=== PATIENT | female | born 1975 | race Caucasian/White ===

== ENCOUNTER 2019-09-20 06:19 | Day surgery (SDC) | payer OTHER ==
[~2019-09-20] VITALS: Ht 154.9 cm; Wt 96.6 kg
[~2019-09-20 06:19] MED LIST: ALL10TAB29 PO; EFFE150C2 PO; HYDR12CA PO; IUD; LIDOCAINE 1% MDV 20ML VIAL SQ PRN; LISI-538 PO; LISI10TA4 PO; MONT10TA4 PO
[2019-09-20] MEDS ORDERED: MIDAZOLAM INJ 2 MG/2 ML VIAL (J2250) As Ordered ONE (06:48)
[2019-09-20 06:49] LABS: HEMATOCRIT 40.7 % (36.0-47.0); HEMOGLOBIN 13.6 g/dl (12.0-15.5); MEAN CORPUSCULAR HEMOGLOBIN 29.6 pg (27.0-33.0); MEAN CORPUSCULAR HGB CONC 33.4 g/dl (32.0-36.5); MEAN CORPUSCULAR VOLUME 88.7 fl (80.0-96.0); PLATELET COUNT, AUTOMATED 193 10^3/uL (150-450); RED BLOOD COUNT 4.59 10^6/uL (4.00-5.40); WHITE BLOOD COUNT 3.8 10^3/uL (4.0-10.0)
[2019-09-20] MEDS ORDERED: ONDANSETRON 4MG/2ML VIAL (J2405) As Ordered ONE (06:49)
[2019-09-20] MEDS ORDERED: fentaNYL 100 MCG/2 ML INJECTION (J3010) As Ordered ONE (06:49)
[2019-09-20] MEDS ORDERED: ACETAMINOPHEN 1000MG 100ML IV BTL (OFIRMEV) (J0131 PER 10MG) As Ordered ONE (06:49)
[2019-09-20] MEDS ORDERED: propofoL 200 MG/20 ML VIAL As Ordered ONE (06:49)
[2019-09-20] MEDS ORDERED: dexameTHASONE 4 MG/ML 1ML VIAL (J1100) As Ordered ONE (06:49)
[2019-09-20] MEDS ORDERED: LIDOCAINE 2% INJ 100 MG/5 ML SDV (FOR ANES.) As Ordered ONE (06:50)
[2019-09-20] MEDS ORDERED: SUGAMMADEX SODIUM 500 MG/5 ML VIAL (BRIDION) As Ordered ONE (06:50)
[2019-09-20] MEDS ORDERED: ROCURONIUM BROMIDE 50 MG/5 ML VIAL As Ordered ONE (06:50)
[2019-09-20] MEDS ORDERED: SODIUM CHLORIDE 0.9% 1000ML IV ONE (07:00)
[2019-09-20] MEDS ORDERED: LR 1,000 ML IV ONE (07:00)
[2019-09-20] MEDS ORDERED: ACETAMINOPHEN 650 MG SUPP PR ONE (07:00)
[2019-09-20 07:12] LABS: BLOOD UREA NITROGEN 15 MG/DL (7-18); CARBON DIOXIDE LEVEL 26 MEQ/L (21-32); CHLORIDE LEVEL 111 MEQ/L (98-107); CREATININE FOR GFR 0.71 MG/DL (0.55-1.30); GLOMERULAR FILTRATION RATE > 60.0 (>58); GLUCOSE, FASTING 105 MG/DL (70-100); HCG, SERUM QUANTITATIVE < 1.0 MIU/ML; SODIUM LEVEL 139 MEQ/L (136-145)
[2019-09-20] MEDS ORDERED: ACETAMINOPHEN 650 MG SUPP As Ordered ONE (08:34)
[2019-09-20] MEDS ORDERED: BUPIVACAINE HCL 0.5% 30 ML VIAL As Ordered ONE (09:33)
[2019-09-20] MEDS ORDERED: LR 1,000 ML IV SCH (11:00)
[2019-09-20] MEDS ORDERED: ONDANSETRON 4MG/2ML VIAL (J2405) IV PRN (11:00)
[2019-09-20] MEDS ORDERED: fentaNYL 100 MCG/2 ML INJECTION (J3010) IV PRN (11:00)
[2019-09-20 12:04] VITALS: BP 126/66
== END 2019-09-20 12:05 | disposition home or self-care (01) ==
LOC: M SDC 06:19
PROVIDERS: ATTEND Obstetrics & Gynecology
DX: Z30.2 Encounter for sterilization (principal); Z88.0 Allergy status to penicillin
CPT/HCPCS: 36415; 58301; 58563; 58661; 80048; 84702; 85027; 88300; 88302; 88305; J0131; J1100; J2250; J2405; J3010

== ENCOUNTER 2023-01-16 11:22 | Emergency (ER) | payer OTHER ==
[~2023-01-16] VITALS: Ht 152.4 cm; Wt 97.7 kg
[~2023-01-16 11:22] MED LIST changes: -ALL10TAB29 PO; +CETI-24 PO; -LIDOCAINE 1% MDV 20ML VIAL SQ PRN; -LISI-538 PO; +LISI10TA22 PO; -LISI10TA4 PO; +LISI20TA33 PO; -MONT10TA4 PO; +MONT10TA97 PO
[2023-01-16 12:31] LABS: BASO % 0.2 % (0.0-1.0); HEMATOCRIT 38.8 % (36.0-47.0); HEMOGLOBIN 12.9 g/dl (12.0-15.5); LYMPH # 1.9 10^3/uL (1.5-5.0); LYMPH % 33.6 % (24.0-44.0); MEAN CORPUSCULAR HEMOGLOBIN 28.9 pg (27.0-33.0); MEAN CORPUSCULAR HGB CONC 33.2 g/dl (32.0-36.5); MONO # 0.5 10^3/uL (0.0-0.8); MONO % 8.7 % (2.0-8.0); NEUTROPHILS # 3.3 10^3/uL (1.5-8.5); PLATELET COUNT, AUTOMATED 222 10^3/uL (150-450); RED BLOOD COUNT 4.46 10^6/uL (4.00-5.40); WHITE BLOOD COUNT 5.8 10^3/uL (4.0-10.0)
[2023-01-16] MEDS ORDERED: PANTOPRAZOLE 40MG VIAL IV ONE (12:40)
[2023-01-16] MEDS ORDERED: MAALOX 30 ML SUSP *UDC PO ONE (12:40)
[2023-01-16] MEDS ORDERED: SUCRALFATE 1 GM TAB PO ONE (12:40)
[2023-01-16] MEDS ORDERED: ISOVUE-370 76% 100ML VIAL As Ordered ONE (12:47)
[2023-01-16 12:48] LABS: INR 1.02; PROTHROMBIN TIME 13.6 SECONDS (12.5-14.5)
[2023-01-16 12:49] LABS: PARTIAL THROMBOPLASTIN TIME 30.3 SECONDS (24.8-34.2)
[2023-01-16 12:56] LABS: LIPASE 43 U/L (12-53)
[2023-01-16] MEDS ORDERED: diphenhydrAMINE 50MG/ML VIAL IV STA (12:57)
[2023-01-16 12:59] LABS: ALBUMIN 3.9 G/DL (3.2-5.2); ALKALINE PHOSPHATASE 64 U/L (46-116); ALT/SGPT 59 U/L (7.0-40); AST/SGOT 23 U/L (<34); BILIRUBIN,DIRECT 0.1 MG/DL (<0.4); BILIRUBIN,TOTAL 0.3 MG/DL (0.3-1.2); BLOOD UREA NITROGEN 10 MG/DL (9-23); CALCIUM LEVEL 9.2 MG/DL (8.5-10.1); CARBON DIOXIDE LEVEL 26 MMOL/L (20-31); CHLORIDE LEVEL 105 MMOL/L (98-107); CK-MB VALUE MASS < 1.0 NG/ML (<3.6); CPK CREATINE PHOSPHOKINASE 94 U/L (34-145); CREATININE FOR GFR 0.57 MG/DL (0.55-1.30); GLOMERULAR FILTRATION RATE > 60.0 (>58); GLUCOSE, FASTING 73 MG/DL (60-100); MB/CK RELATIVE INDEX 1.06 (< OR =4); POTASSIUM SERUM 3.3 MMOL/L (3.5-5.1); SODIUM LEVEL 142 MMOL/L (136-145); TOTAL PROTEIN 6.8 G/DL (5.7-8.2)
[2023-01-16 13:00] LABS: THYROID STIMULATING HORMONE 1.765 uIU/ML (0.55-4.78)
[2023-01-16 13:08] LABS: RSV AMPLIFICATION NEGATIVE (NEGATIVE)
[2023-01-16 13:48] LABS: CK-MB VALUE MASS < 1.0 NG/ML (<3.6); CPK CREATINE PHOSPHOKINASE 84 U/L (34-145); MB/CK RELATIVE INDEX 1.19 (< OR =4)
[2023-01-16] MEDS ORDERED: POTASSIUM CHLORIDE 10MEQ SR TABLET PO ONE (14:45)
[2023-01-16 16:00] VITALS: BP 123/65; TEMP 97.8; O2SAT 99
== END 2023-01-16 16:18 | disposition home or self-care (01) ==
LOC: M ED 11:22
DX: K21.9 Gastro-esophageal reflux disease without esophagitis (principal); M54.12 Radiculopathy, cervical region; I10 Essential (primary) hypertension; M06.9 Rheumatoid arthritis, unspecified; Z91.041 Radiographic dye allergy status; Z88.0 Allergy status to penicillin; Z79.899 Other long term (current) drug therapy
CPT/HCPCS: 70450; 71045; 71275; 72125; 80047; 80048; 80076; 82550; 82553; 83690; 84439; 84443; 84484; 85025; 85610; 85730; 87631; 93005; 93041; 94760; 96374; 96375; 99285; C9113; J1200; Q9967

== ENCOUNTER → 2024-02-27 | Outpatient (CLI) | payer OTHER ==
[~2024-02-27] MED LIST changes: -EFFE150C2 PO; +EFFE150C3 PO
[2024-02-27 09:29] LABS: HEMATOCRIT 39.2 % (36.0-47.0); LYMPH # 1.6 10^3/uL (1.5-5.0); LYMPH % 35.2 % (24.0-44.0); MEAN CORPUSCULAR HEMOGLOBIN 29.1 pg (27.0-33.0); MEAN CORPUSCULAR HGB CONC 33.2 g/dl (32.0-36.5); MEAN CORPUSCULAR VOLUME 87.7 fl (80.0-96.0); MONO # 0.4 10^3/uL (0.0-0.8); MONO % 7.9 % (2.0-8.0); NEUTROPHILS # 2.6 10^3/uL (1.5-8.5); NEUTROPHILS % 56.2 % (36.0-66.0); PLATELET COUNT, AUTOMATED 206 10^3/uL (150-450); RED BLOOD COUNT 4.47 10^6/uL (4.00-5.40); WHITE BLOOD COUNT 4.5 10^3/uL (4.0-10.0)
[2024-02-27 09:35] LABS: ERYTHROCYTE SEDIMENTATION RATE 15 mm/hr (0-20)
[2024-02-27 10:01] LABS: ALBUMIN 3.9 G/DL (3.2-5.2); ALKALINE PHOSPHATASE 68 U/L (46-116); ALT/SGPT 40 U/L (7.0-40); AST/SGOT 15 U/L (<34); BILIRUBIN,TOTAL 0.4 MG/DL (0.3-1.2); BLOOD UREA NITROGEN 13 MG/DL (9-23); CALCIUM LEVEL 9.2 MG/DL (8.5-10.1); CARBON DIOXIDE LEVEL 22 MMOL/L (20-31); CHLORIDE LEVEL 107 MMOL/L (98-107); GLOMERULAR FILTRATION RATE > 60.0 (>58); GLUCOSE, FASTING 90 MG/DL (60-100); IMMUNOGLOBULIN A 133.6 MG/DL (40-350); IMMUNOGLOBULIN G 1048 MG/DL (650-1600); POTASSIUM SERUM 3.9 MMOL/L (3.5-5.1); SODIUM LEVEL 138 MMOL/L (136-145); TOTAL PROTEIN 6.9 G/DL (5.7-8.2)
[2024-02-27 10:02] LABS: THYROID PEROXIDASE ANTIBODY < 28.0 U/ML (<60.0)
[2024-02-27 10:03] LABS: THYROID STIMULATING HORMONE 1.161 uIU/ML (0.55-4.78)
[2024-03-01 14:57] LABS: ANA SCREEN, IFA POSITIVE (NEGATIVE)
[2024-03-01 15:02] LABS: ANA PATTERN Nuclear, Homogeneous (NEGATIVE); ANA PATTERN 2 Nuclear, Speckled
[2024-03-02 10:02] LABS: ALBUMIN SPEP 4.3 g/dL (3.8-4.8); ALPHA-1-GLOBULINS SO 0.3 g/dL (0.2-0.3); ALPHA-2-GLOBULINS SO 0.6 g/dL (0.5-0.9); BETA 2 GLOBULIN 0.4 g/dL (0.2-0.5); BETA-GLOBULIN SO 0.4 g/dL (0.4-0.6); GAMMA GLOBULINS SO 0.9 g/dL (0.8-1.7)
[2024-03-03 03:36] LABS: TRYPTASE 5.4 mcg/L (<11.0)
== END ==
LOC: M LAB 08:16 → M PLALAB 08:16
PROVIDERS: ATTEND Allergy & Immunology
DX: R53.81 Other malaise (principal); L50.9 Urticaria, unspecified

== ENCOUNTER → 2024-04-26 | Outpatient (CLI) | payer OTHER | LOC: M PLALAB 12:16 | PROVIDERS: ATTEND Allergy & Immunology | DX: R79.9 Abnormal finding of blood chemistry, unspecified (principal) ==

== ENCOUNTER → 2024-05-04 | Outpatient (CLI) | payer OTHER | LOC: M PLAIMG 11:25 | PROVIDERS: ATTEND Student in an Organized Health Care Education/Training Program | DX: R09.81 Nasal congestion (principal); J30.9 Allergic rhinitis, unspecified; J01.00 Acute maxillary sinusitis, unspecified ==

== ENCOUNTER 2024-10-14 13:37 | Emergency (ER) | payer OTHER ==
[~2024-10-14] VITALS: Ht 154.9 cm; Wt 98.2 kg
[2024-10-14] MEDS ORDERED: HYDR200T46 (13:47)
[2024-10-14] MEDS ORDERED: HYDR-3363 (13:47)
[2024-10-14] MEDS ORDERED: FAMO20TA PO (13:47)
[2024-10-14] MEDS ORDERED: EPIN0.3I11 (13:47)
[2024-10-14] MEDS ORDERED: XOLA150I (13:47)
[2024-10-14] MEDS: FAMOTIDINE 20MG/2ML VIAL IVP ONE (15:05)
[2024-10-14] MEDS: diphenhydrAMINE 50MG/ML VIAL IV ONE (15:05)
[2024-10-14] MEDS: methylPREDNISolone 125MG 2ML VIAL IV ONE (15:05)
[2024-10-14 15:11] LABS: BASO % 0.1 % (0.0-1.0); HEMATOCRIT 39.9 % (36.0-47.0); LYMPH # 1.3 10^3/uL (1.5-5.0); LYMPH % 15.4 % (24.0-44.0); MEAN CORPUSCULAR HEMOGLOBIN 30.2 pg (27.0-33.0); MEAN CORPUSCULAR HGB CONC 35.1 g/dl (32.0-36.5); MEAN CORPUSCULAR VOLUME 86.2 fl (80.0-96.0); MONO # 0.8 10^3/uL (0.0-0.8); MONO % 9.7 % (2.0-8.0); NEUTROPHILS # 6.1 10^3/uL (1.5-8.5); NEUTROPHILS % 74.1 % (36.0-66.0); PLATELET COUNT, AUTOMATED 237 10^3/uL (150-450); RED BLOOD COUNT 4.63 10^6/uL (4.00-5.40); WHITE BLOOD COUNT 8.3 10^3/uL (4.0-10.0)
[2024-10-14 15:16] LABS: ALKALINE PHOSPHATASE 65 U/L (35-104); ALT/SGPT 57 U/L (7.0-40); AST/SGOT 29 U/L (<34); BILIRUBIN,DIRECT 0.1 MG/DL (<0.4); BILIRUBIN,TOTAL 0.4 MG/DL (0.3-1.2); BLOOD UREA NITROGEN 9 MG/DL (9-23); C REACTIVE PROTEIN QUANTITATIV 0.69 MG/DL (<1.0); CALCIUM LEVEL 8.9 MG/DL (8.5-10.1); CARBON DIOXIDE LEVEL 24 MMOL/L (20-31); CHLORIDE LEVEL 104 MMOL/L (98-107); CREATININE FOR GFR 0.63 MG/DL (0.55-1.30); GLOMERULAR FILTRATION RATE > 60.0 (>58); GLUCOSE, FASTING 137 MG/DL (60-100); POTASSIUM SERUM 3.6 MMOL/L (3.5-5.1); SODIUM LEVEL 140 MMOL/L (136-145)
[2024-10-14 15:27] LABS: ERYTHROCYTE SEDIMENTATION RATE 10 mm/hr (0-20)
[2024-10-14] MEDS: NS (Normal Saline) 0.9% 1,000 ML IV ONE (15:51)
[2024-10-14] MEDS: KETOROLAC 30 MG/ML 1ML VIAL IV ONE (15:58)
[2024-10-14] MEDS: ACETAMINOPHEN *IV* 1,000 MG in IV 1 EA IV ONE (15:58)
[2024-10-14 16:00] LABS: FREE T4 1.12 NG/DL (0.89-1.76); THYROID STIMULATING HORMONE 0.792 uIU/ML (0.55-4.78)
[2024-10-14] MEDS ORDERED: VENTAER INH (17:05)
[2024-10-14] MEDS ORDERED: PRED20TA PO (17:05)
[2024-10-14] MEDS ORDERED: BENZ200C70 PO (17:05)
[2024-10-14] MEDS: BENZONATATE 100MG CAPSULE PO ONE (17:06)
[2024-10-14 17:07] VITALS: BP 115/75; TEMP 98.6; O2SAT 96
[2024-10-14] MEDS: ALBUTEROL 90 MCG/ACT 8GM HFA INHALER INH ONE (17:11)
== END 2024-10-14 17:21 | disposition home or self-care (01) ==
LOC: M ED 13:37
DX: J20.9 Acute bronchitis, unspecified (principal); B34.2 Coronavirus infection, unspecified; L50.1 Idiopathic urticaria; G35 Multiple sclerosis; I10 Essential (primary) hypertension; R51.9 Headache, unspecified; Z97.5 Presence of (intrauterine) contraceptive device; Z79.899 Other long term (current) drug therapy; Z88.0 Allergy status to penicillin; Z88.1 Allergy status to other antibiotic agents; Z91.041 Radiographic dye allergy status
CPT/HCPCS: 71045; 80048; 80076; 84439; 84443; 85025; 85652; 86140; 87486; 87581; 87633; 87798; 93005; 93041; 96365; 96375; 96376; 99285; J0131; J1200; J1885; J2919; S0028

== ENCOUNTER → 2024-10-23 | Outpatient (CLI) | payer OTHER ==
[~2024-10-23] MED LIST changes: +ALBU8.5H INH; +BENZ200C70 PO; +BUDE32SU6; +EPIN0.3I11; +FAMO20TA PO; +FAMO40TA3 PO; +HYDR-3363 PO; +HYDR200T46; +PRED20TA PO; +VENL225T32 PO; +VENTAER INH; +XOLA150I SC
[2024-10-23 11:34] LABS: FOLATE 11.2 NG/ML (>5.4)
[2024-10-24 06:47] LABS: IMMUNOGLOBULIN E 27.1 IU/ML (0-378)
== END ==
LOC: M LAB 09:34
PROVIDERS: ATTEND Allergy & Immunology
DX: L50.9 Urticaria, unspecified (principal); J30.89 Other allergic rhinitis; R53.81 Other malaise; Z91.018 Allergy to other foods

== ENCOUNTER 2024-12-03 17:54 | Emergency (ER) | payer OTHER ==
[~2024-12-03] VITALS: Ht 154.9 cm; Wt 99.5 kg
[~2024-12-03 17:54] MED LIST changes: +VENL225T PO; -VENL225T32 PO
[2024-12-03 18:37] LABS: BASO % 0.1 % (0.0-1.0); EOS % 0.1 % (0.0-3.0); HEMATOCRIT 42.1 % (36.0-47.0); HEMOGLOBIN 14.2 g/dl (12.0-15.5); LYMPH # 2.2 10^3/uL (1.5-5.0); LYMPH % 30.9 % (24.0-44.0); MEAN CORPUSCULAR HEMOGLOBIN 29.8 pg (27.0-33.0); MEAN CORPUSCULAR HGB CONC 33.7 g/dl (32.0-36.5); MEAN CORPUSCULAR VOLUME 88.4 fl (80.0-96.0); MONO # 0.8 10^3/uL (0.0-0.8); MONO % 10.6 % (2.0-8.0); NEUTROPHILS # 4.2 10^3/uL (1.5-8.5); NEUTROPHILS % 57.9 % (36.0-66.0); PLATELET COUNT, AUTOMATED 233 10^3/uL (150-450); RED BLOOD COUNT 4.76 10^6/uL (4.00-5.40); WHITE BLOOD COUNT 7.3 10^3/uL (4.0-10.0)
[2024-12-03] MEDS: ASPIRIN 81MG CHEW TABLET PO ONE (19:08)
[2024-12-03 19:10] VITALS: BP 124/64
[2024-12-03] MEDS: NITROGLYCERIN 0.4MG SUBL TABLET SL PRN (19:10)
[2024-12-03 19:13] LABS: CPK CREATINE PHOSPHOKINASE 71 U/L (34-145)
[2024-12-03 19:15] LABS: ALKALINE PHOSPHATASE 62 U/L (35-104); ALT/SGPT 52 U/L (7.0-40); AST/SGOT 20 U/L (<34); BILIRUBIN,DIRECT 0.1 MG/DL (<0.4); BILIRUBIN,TOTAL 0.4 MG/DL (0.3-1.2); BLOOD UREA NITROGEN 15 MG/DL (9-23); CARBON DIOXIDE LEVEL 24 MMOL/L (20-31); CHLORIDE LEVEL 105 MMOL/L (98-107); CK-MB VALUE MASS < 1.0 NG/ML (<3.6); CREATININE FOR GFR 0.71 MG/DL (0.55-1.30); GLOMERULAR FILTRATION RATE > 90.0 (>58); GLUCOSE, FASTING 109 MG/DL (60-100); POTASSIUM SERUM 3.7 MMOL/L (3.5-5.1); SODIUM LEVEL 140 MMOL/L (136-145); TOTAL PROTEIN 6.8 G/DL (5.7-8.2)
[2024-12-03] MEDS: diphenhydrAMINE 50MG/ML VIAL IV STA (19:29)
[2024-12-03] MEDS: methylPREDNISolone 125MG 2ML VIAL IV ONE (19:35)
[2024-12-03] MEDS ORDERED: ISOVUE-370 76% 100ML VIAL As Ordered ONE (19:40)
[2024-12-03 20:08] LABS: CK-MB VALUE MASS < 1.0 NG/ML (<3.6)
[2024-12-03 20:10] LABS: CPK CREATINE PHOSPHOKINASE 60 U/L (34-145); MB/CK RELATIVE INDEX 1.66 (< OR =4)
[2024-12-03] MEDS: ACETAMINOPHEN 325 MG TAB PO ONE (22:11)
[2024-12-04 00:23] VITALS: BP 119/63; TEMP 97.7; O2SAT 98
== END 2024-12-04 00:25 | disposition home or self-care (01) ==
LOC: M ED 17:54
DX: R20.2 Paresthesia of skin (principal); J98.8 Other specified respiratory disorders; G35 Multiple sclerosis; L93.1 Subacute cutaneous lupus erythematosus
CPT/HCPCS: 70450; 70544; 70551; 71045; 71275; 80048; 80076; 82550; 82553; 84484; 85025; 93005; 93041; 94760; 96374; 96375; 99285; J1200; J2919; Q9967

== ENCOUNTER → 2024-12-08 | Outpatient (CLI) | payer OTHER ==
[~2024-12-08] MED LIST changes: +HYDR12.510 PO; -HYDR12CA PO
== END ==
LOC: M EKG 08:28
PROVIDERS: ATTEND Physician Assistant
DX: R00.2 Palpitations (principal)

== ENCOUNTER → 2024-12-14 | Outpatient (CLI) | payer OTHER ==
[~2024-12-14] MED LIST changes: -HYDR12.510 PO; +HYDR12CA PO
== END ==
LOC: M CARPUL 09:41
PROVIDERS: ATTEND Physician Assistant
DX: R01.1 Cardiac murmur, unspecified (principal)

== ENCOUNTER → 2024-12-22 | Outpatient (CLI) | payer OTHER | LOC: M CARPUL 12:51 | PROVIDERS: ATTEND Physician Assistant | DX: R07.9 Chest pain, unspecified (principal); R94.31 Abnormal electrocardiogram [ECG] [EKG] ==

== ENCOUNTER 2025-03-02 16:18 | Emergency (ER) | payer OTHER ==
[~2025-03-02] VITALS: Ht 154.9 cm; Wt 98.5 kg
[~2025-03-02 16:18] MED LIST changes: +HYDR12.510 PO; -HYDR12CA PO
[2025-03-02 22:06] VITALS: BP 137/85; TEMP 97.2; O2SAT 100
== END 2025-03-02 22:20 | disposition home or self-care (01) ==
LOC: M ED 16:18
DX: S83.411A Sprain of medial collateral ligament of right knee, initial encounter (principal); X50.0XXA Overexertion from strenuous movement or load, initial encounter; Y92.017 Garden or yard in single-family (private) house as the place of occurrence of the external cause; Y93.89 Activity, other specified; Y99.9 Unspecified external cause status; Z88.0 Allergy status to penicillin; Z88.1 Allergy status to other antibiotic agents; Z91.041 Radiographic dye allergy status; I10 Essential (primary) hypertension